=== PATIENT | male | born 1980 | race Caucasian/White ===

== ENCOUNTER 2016-04-30 01:24 | Emergency (ER) | payer MEDICAID ==
[~2016-04-30 01:24] MED LIST: ACETAMINOPHEN325 M2 PO; ALDACTONE50 M1; AMITRIPTYLINE H25 M1 PO; ARIXTRA SC; ARIXTRA SQ; ASPIR-LOW81 M1 PO; ASPIRIN EC81 MG PO; ASPIRIN325 M3 PO; ATORVASTATIN CA80 M1 PO; BUPROPION PO; CLONAZEPAM; CLONAZEPAM0.5 MG PO; COLACE100 MG PO; COUMADIN1 MG PO; COUMADIN10 MG; COUMADIN4 MG PO; COUMADIN5 M1 PO; COUMADIN6 M1 PO; COUMADIN6 MG PO; COUMADIN7.5 MG; CPAP; CYCLOBENZAPRINE10 M1 PO; DOCUSATE SODIU100 M2 PO; FENOFIBRATE145 M2 PO; FIBER; FIBER 61 TAB; FIBERLAX625 MG; FISH OIL 1,0001 EAC6 PO; FISH OIL PO; FLUTICASONE PRO16 G1; GABAPENTIN100 M1 PO; KEFLEX500 MG PO; LASIX20 M1 PO; LIPITOR40 M1 PO; LOPID600 MG PO; LOVENOX100 MG/ML; LOVENOX100 MG/ML SQ; LOVENOX150 MG/1 M SC; LOVENOX150 MG/ML SQ; LOVENOX80 MG/0.1 SC; MIRAPEX0.125 M1 PO; MUCINEX DM ER1 EAC1 PO; MULTIVITAMIN1 CAP; MULTIVITAMIN1 TAB PO; MULTIVITAMINS1 EAC6 PO; NEURONTIN300 M1 PO; NEURONTIN300 MG PO; NEXIUM20 MG PO; NITROGLYCERIN SL; NITROGLYCERIN0.4 M2 SL; NORCO 5/325 TAB1 TAB PO; OMEPRAZOLE20 M4 PO; OMEPRAZOLE20 MG PO; OMEPRAZOLE40 M2 PO; PAXIL30 M1 PO; PAXIL40 MG PO; PERCOCET 5-3251 EACH PO; PROZAC10 MG; SEREVENT DISKU50 MCG; SPIRONOLACTONE25 M1 PO; STOOL SOFTENER50 MG; TOPIRAMATE25 M3 PO; TRAMADOL HCL50 MG; TRIAMTERENE-HC1 EAC1 PO; TRIAMTERENE-HC1 EAC3 PO; TRICOR145 M1 PO; TYLENOL W/CODEI1 TAB PO; VIBRAMYCIN100 M1 PO; VITAMIN D250000 UNI1 PO; VITAMIN D31 M1; WARFARIN SODIU7.5 MG; WARFARIN SODIUM4 MG; XARELTO15 M1 PO; XARELTO20 M1 PO; ZOCOR40 MG PO; muscle relaxant
[2016-04-30] MEDS ORDERED: VITAMIN D35000 UNI3 PO (01:41)
[2016-09-30] MEDS ORDERED: PREVACID30 M2 PO (06:44)
[2016-09-30] MEDS ORDERED: OXYCODONE HCL5 M1 PO (08:34)
== END 2016-04-30 03:31 ==
LOC: EDMED 01:24
DX: M79.661 Pain in right lower leg (principal); I25.10 Atherosclerotic heart disease of native coronary artery without angina pectoris; F32.9 Major depressive disorder, single episode, unspecified; F41.9 Anxiety disorder, unspecified; G47.33 Obstructive sleep apnea (adult) (pediatric); Z88.8 Allergy status to other drugs, medicaments and biological substances; Z79.899 Other long term (current) drug therapy

== ENCOUNTER 2016-05-29 23:47 | Emergency (ER) | payer MEDICAID ==
[~2016-05-29 23:47] MED LIST changes: +VITAMIN D35000 UNI3 PO
[2016-05-30 00:24] LABS: ALB/GLOB RATIO 0.9 (0.8-2.0); ALBUMIN 3.6 g/dl (3.5-5.0); ALKALINE PHOSPHATASE 45 U/L (33-138); ALT/SGPT 26 U/L (12-78); BILIRUBIN,TOTAL 0.4 mg/dl (0.0-1.5); BLOOD UREA NITROGEN 28 mg/dl (6-24); CALCIUM 9.3 mg/dl (8.5-10.5); CARBON DIOXIDE-VENOUS 23 mmol/L (22-32); CHLORIDE 108 mmol/l (96-110); CREATININE 1.41 mg/dl (0.60-1.30); GLUCOSE 117 mg/dL (70-110); LIPASE 357 U/L (73-393); SODIUM 138 mmol/L (135-145); eGFR VALUE FOR BLACK 73 mL/Min
[2016-05-30 00:28] LABS: ANION GAP 12 mmol/L (0-20); AST/SGOT 24 U/L (10-40)
[2016-05-30 00:29] LABS: POTASSIUM 4.5 mmol/L (3.7-5.1)
[2016-05-30 01:39] LABS: BASO % 0.2 % (0-2); EOS % 1.6 % (0-7); EOSINOPHIL ABSOLUTE COUNT 0.1 tho/cmm (0.0-0.7); HCT-HEMATOCRIT 36.8 % (36.0-53.5); HGB-HEMOGLOBIN 12.1 gm/dl (13.5-17.0); IMMATURE GRANULOCYTES ABSOLUTE 0.12 tho/cmm (0-0.03); IMMATURE GRANULOCYTES PERCENT 1.5 % (0-0.3); LYMPH % 18.2 % (20-45); LYMPH ABSOLUTE COUNT 1.5 tho/cmm (0.8-4.5); MCH (MEAN CORPUSCULAR HGB) 26.1 pg (28.0-32.0); MCHC MEAN CORPUSCULAR HGB CONC 32.9 % (32.0-36.0); MCV (MEAN CELL VOLUME) 79.3 fl (82.0-96.0); MEAN PLATELET VOLUME 8.6 cmc (9.4-12.4); MONO % 10.3 % (0-12); MONOCYTE ABSOLUTE COUNT 0.8 tho/cmm (0.0-1.2); NEUTROPHIL ABSOLUTE COUNT 5.5 tho/cmm (1.6-8.0); NEUTROPHIL-AUTOMATED 5.5 tho/cmm (1.6-8.0); NEUTROPHILS % 68.2 % (40-80); PLATELET COUNT 253 tho/cmm (150-450); RED BLOOD COUNT 4.64 mil/cmm (4.40-5.70); RED CELL DISTRIBUTION WIDTH 16.7 % (12.4-16.4); WHITE BLOOD COUNT 8.1 tho/cmm (4.0-10.0)
[2016-05-30] MEDS ORDERED: NORCO 5-325 TA1 EACH PO (02:13)
[2016-09-30] MEDS ORDERED: PREVACID30 M2 PO (06:44)
[2016-09-30] MEDS ORDERED: OXYCODONE HCL5 M1 PO (08:34)
== END 2016-05-30 02:41 ==
LOC: EDMED 23:47
PROVIDERS: Emergency Medicine
DX: R07.89 Other chest pain (principal)
CPT/HCPCS: J1170; J2060; J2405; J7030; Q9967

== ENCOUNTER 2016-07-09 20:05 | Emergency (ER) | payer MEDICAID ==
[~2016-07-09 20:05] MED LIST changes: +NORCO 5-325 TA1 EACH PO
[2016-07-09] MEDS ORDERED: ATIVAN0.5 M1 PO (20:58)
[2016-07-09] MEDS ORDERED: PROTONIX40 M2 PO (21:01)
[2016-07-09 22:06] LABS: BASO % 0.3 % (0-2); EOS % 2.2 % (0-7); EOSINOPHIL ABSOLUTE COUNT 0.2 tho/cmm (0.0-0.7); HGB-HEMOGLOBIN 13.5 gm/dl (13.5-17.0); IMMATURE GRANULOCYTES ABSOLUTE 0.05 tho/cmm (0-0.03); IMMATURE GRANULOCYTES PERCENT 0.7 % (0-0.3); LYMPH % 21.4 % (20-45); LYMPH ABSOLUTE COUNT 1.4 tho/cmm (0.8-4.5); MCH (MEAN CORPUSCULAR HGB) 26.4 pg (28.0-32.0); MCHC MEAN CORPUSCULAR HGB CONC 32.9 % (32.0-36.0); MCV (MEAN CELL VOLUME) 80.2 fl (82.0-96.0); MEAN PLATELET VOLUME 8.6 cmc (9.4-12.4); MONO % 7.4 % (0-12); MONOCYTE ABSOLUTE COUNT 0.5 tho/cmm (0.0-1.2); NEUTROPHIL ABSOLUTE COUNT 4.6 tho/cmm (1.6-8.0); NEUTROPHIL-AUTOMATED 4.6 tho/cmm (1.6-8.0); PLATELET COUNT 242 tho/cmm (150-450); RED BLOOD COUNT 5.11 mil/cmm (4.40-5.70); RED CELL DISTRIBUTION WIDTH 15.5 % (12.4-16.4); WHITE BLOOD COUNT 6.7 tho/cmm (4.0-10.0)
[2016-07-09 22:22] LABS: ALBUMIN 3.7 g/dl (3.5-5.0); ALKALINE PHOSPHATASE 49 U/L (33-138); ALT/SGPT 37 U/L (12-78); ANION GAP 11 mmol/L (0-20); AST/SGOT 24 U/L (10-40); BILIRUBIN,TOTAL 0.4 mg/dl (0.0-1.5); BLOOD UREA NITROGEN 24 mg/dl (6-24); CALCIUM 9.3 mg/dl (8.5-10.5); CARBON DIOXIDE-VENOUS 27 mmol/L (22-32); CHLORIDE 107 mmol/l (96-110); CREATININE 1.56 mg/dl (0.60-1.30); GLUCOSE 121 mg/dL (70-110); LIPASE 305 U/L (73-393); POTASSIUM 3.4 mmol/L (3.7-5.1); SODIUM 142 mmol/L (135-145); eGFR VALUE FOR BLACK 64 mL/Min
[2016-07-09 22:57] LABS: URINE BILIRUBIN NEGATIVE (NEG); URINE BLOOD NEGATIVE (NEG); URINE GLUCOSE (UA) NEGATIVE (NEG); URINE KETONE NEGATIVE (NEG); URINE LEUKOCYTE ESTERASE NEGATIVE (NEG); URINE NITRITE NEGATIVE (NEG); URINE PROTEIN NEGATIVE (NEG); URINE SPECIFIC GRAVITY 1.025 (1.003-1.030)
[2016-07-09 22:59] LABS: URINE APPEARANCE CLEAR; URINE COLOR YELLOW
[2016-07-09] MEDS ORDERED: ZOFRAN4 M2 PO (23:35)
[2016-07-09] MEDS ORDERED: NORCO 5/3251 TAB PO (23:35)
[2016-09-30] MEDS ORDERED: PREVACID30 M2 PO (06:44)
[2016-09-30] MEDS ORDERED: OXYCODONE HCL5 M1 PO (08:34)
== END 2016-07-09 23:51 ==
LOC: EDMED 20:05
PROVIDERS: Emergency Medicine
DX: N18.9 Chronic kidney disease, unspecified (principal); R10.13 Epigastric pain; R11.2 Nausea with vomiting, unspecified; F41.9 Anxiety disorder, unspecified; G47.33 Obstructive sleep apnea (adult) (pediatric); K21.9 Gastro-esophageal reflux disease without esophagitis; Z86.711 Personal history of pulmonary embolism; Z86.718 Personal history of other venous thrombosis and embolism; Z90.49 Acquired absence of other specified parts of digestive tract; Z79.899 Other long term (current) drug therapy